=== PATIENT | female | born 1935 | race Caucasian/White ===

== ENCOUNTER 2024-01-27 13:02 | Inpatient (IN) | payer OTHER ==
[~2024-01-27] VITALS: Ht 175.3 cm; Wt 55.3 kg
--- NOTE | 2024-01-27 13:43 | ED.PDOC ---
General HPI Comments 88y F who presents to the ED for chief complaint of pelvic pain. Pt states she has been having L sided lower pelvic pain radiating down her LLE for the past 2 hours. Pt states the pain is sharp, rating the pain 10/10, with no associated exacerbating or relieving factors. Pt has associated nausea and vomiting but denies diarrhea, fever, cough, chills, dysuria, chest pain, or shortness of breath. Pt denies any recent sick contacts. Pt in the ED, noted to be in severe distress. Pt does otherwise has noted stable vitals in the ED. Pt otherwise denies any other symptoms at this time. Chief Complaint: Pelvic Pain Time Seen by MD: 13:40 Reviewed notes: Nurses Notes, Medications, Allergies Allergies: Coded Allergies: Iodine (Verified Allergy, Unknown, 01/27/24) Information Source: Patient Mode of Arrival: Wheelchair Brought in by: daughter Severity: Moderate Inability to void: None Timing: Hours Duration: Since onset Prehospital treatment: None Onset: Spontaneous Symptoms: None History of: None Location: Suprapubic Modifying factors: None associated signs and symptoms: Nausea, Vomiting, Back Pain Past Medical History PAST MEDICAL HISTORY: CVA, High Lipids, HTN, Thyroid Surgical History: Denies all surgeries SCRIPT READER History: No Pertinent SCRIPT READER History Family History Family History: Family hx of Cancer Social History Smoker: Non-Smoker Alcohol: Denies ETOH Use Drugs: Denies Drug Use Lives In: Home Constitutional: denies: chills, diaphoresis, fatigue, fever, malaise, sweats, weakness, others EENTM: denies: blurred vision, double vision, ear bleeding, ear discharge, ear drainage, ear pain, ear ringing, eye pain, eye redness, hearing loss, mouth pain, mouth swelling, nasal discharge, nose bleeding, nose congestion, nose p ain, photophobia, tearing, throat pain, throat swelling, voice changes, others Respiratory: denies: cough, hemoptysis, orthopnea, SOB at rest, shortness of breath, SOB with excertion, stridor, wheezing, others Cardiovascular: denies: chest pain, dizzy spells, diaphoresis, Dyspnea on exertion, edema, irregular heart beat, left arm pain, lightheadedness, palpitations, PND, syncope, others Gastrointestinal: reports: nausea, vomiting; denies: abdomen distended, abdominal pain, blood streaked bowels, constipated, diarrhea, dysphagia, difficulty swallowing, hematemesis, melena, poor appetite, poor fluid intake, rectal bleeding, rectal pain, others Genitourinary: reports: flank pain; denies: abnormal vagina bleeding, burning, dyspareunia, dysuria, frequency, hematuria, incontinence, pain, , vagina discharge, urgency, others Neurological: denies: dizziness, fainting, headache, left sided numbness, left sided weakness, numbness, paresthesia, pre-existing deficit, right sided numbness, right sided weakness, seizure, speech problems, tingling, tremors, weakness, others Musculoskeletal: reports: back pain; denies: gout, joint pain, joint swelling, muscle pain, muscle stiffness, neck pain, others Integumetry: denies: bruises, change in color, change in hair/nails, dryness, laceration, lesions, lumps, rash, wounds, others Allergic/Immunocompromised: denies: Difficulty Healing, Frequent Infections, Hives, Itching, others Hematologic/Lymphatic: denies: anemia, blood clots, easy bleeding, easy bruising, swollen glands, others Endocrine: denies: excessive hunger, excessive sweating, excessive thirst, excessive urination, flushing, intolerance to cold, intolerance to heat, unexplained weight gain, unexplained weight loss, others Psychiatric: denies: anxiety, bipolar disorder, depression, hopeless, panic disorder, schizophrenia, sleepless, suicidal, others All Other Systems: Reviewed and Negative Physical Exam General Appearance: Moderate Distress HEENT: Normal ENT Inspection, Pharynx Normal, TMs Normal Neck: Full Range of Motion, Non-Tender, Normal, Normal Inspection Respiratory: Chest Non-Tender, Lungs Clear, No Accessory Muscle Use, No Respiratory Distress, Normal Breath Sounds Cardiovascular: No Edema, No JVD, No Murmur, No Gallop, Normal Peripheral Pulses, Regular Rate/Rhythm Breast Exam: Deferred Gastrointestinal: LLQ, No Organomegaly, No Pulsatile Mass, Normal Bowel Sounds, Soft, Tenderness Genitalia: Deferred Pelvic: Deferred Rectal: Deferred Extremities: No calf tenderness, Normal capillary refill, Normal inspection, Normal range of motion, Non-tender, No pedal edema Musculoskeletal : Extremity Location: Shoulder Apperance: Limited ROM Neurologic: Alert, optical effects line up person II-XII nml as Tested, No Motor Deficits, Normal Affect, Normal Mood, No Sensory Deficits Cerebellar Function: Normal Reflexes: Normal Skin: Dry, Normal Color, Warm Lymphatic: No Adenopathy Was a procedure done? Was a procedure done?: No Differential Diagnosis Kidney stone (Female): Cholelithiasis, DJD, Musculoskeletal pain, Pyelonephritis, Strain, Urinary obstruction Urinary Problem (Female): UTI X-Ray, Labs, Meds, VS Vital Signs Date Time Temp Pulse Resp B/P (MAP) Pulse Ox O2 Delivery O2 Flow Rate FiO2 01/27/24 14:31 97.0 67 18 158/74 (102) 96 97.0 01/27/24 14:26 86 20 136/86 01/27/24 14:25 80 20 132/86 01/27/24 13:43 97.2 71 24 128/84 (99) 99 Lab Test 01/27/24 13:57 Range/Units White Blood Count 7.5 4.4-10.8 10^3/uL Red Blood Count 4.39 4.0-5.20 10^6/uL Hemoglobin 13.7 12.2-16.2 g/dL Hematocrit 41.3 36.0-46.0 % Mean Corpuscular Volume 94.2 80.0-100.0 fL Mean Corpuscular Hemoglobin 31.2 28.0-32.0 pg Mean Corpuscular Hemoglobin Concent 33.1 32.0-36.0 g/dL Red Cell Distribution Width 14.7 H 11.8-14.3 % Platelet Count 249 140-450 10^3/uL Mean Platelet Volume 9.3 6.9-10.8 fL Neutrophils (%) (Auto) 68.0 37.0-80.0 % Lymphocytes (%) (Auto) 23.2 10.0-50.0 % Monocytes (%) (Auto) 7.2 0.0-12.0 % Eosinophils (%) (Auto) 1.2 0.0-7.0 % Basophils (%) (Auto) 0.4 0.0-2.0 % Neutrophils # (Auto) 5.1 1.6-8.6 10 ^3/uL Lymphocytes # (Auto) 1.7 0.4-5.4 10 ^3/uL Monocytes # (Auto) 0.5 0-1.3 10 ^3/uL Eosinophils # (Auto) 0.1 0-0.8 10 ^3/uL Basophils # (Auto) 0 0-0.2 10 ^3/uL Nucleated Red Blood Cells 0.0 % Sodium Level Pending Potassium Level Pending Chloride Level Pending Carbon Dioxide Level Pending Anion Gap Pending Blood Urea Nitrogen Pending Creatinine Pending Glomerular Filtration Rate Calc Pending BUN/Creatinine Ratio Pending Serum Glucose Pending Calcium Level Pending Total Bilirubin Pending Aspartate Amino Transferase (AST) Pending Alanine Aminotransferase (ALT) Pending Alkaline Phosphatase Pending Total Protein Pending Albumin Pending Lipase Pending Current Medications Medications (Trade) Dose Ordered Sig/Esequiel Route Start Time Stop Time Status Last Admin Ondansetron HCl (Zofran) 4 mg ONCE ONCE IV 01/27/24 13:45 01/27/24 13:46 DC 01/27/24 14:26 Morphine Sulfate 4 mg ONCE ONCE IV 01/27/24 13:45 01/27/24 13:46 DC 01/27/24 14:25 Sodium Chloride 500 ml @ 500 mls/hr Q1H ONCE IVB 01/27/24 13:45 01/27/24 14:44 DC 01/27/24 14:20 PROCEDURE(s): ABPL - CT AB PEL WO CON-NO ORAL OR IV IMPRESSION: 1. Moderate left hydroureteronephrosis secondary to a proximal left ureteral calculus measuring 4 mm. 2. Right ovarian/adnexal cystic lesion with peripheral nodularity measuring 8.9 x 8.1 cm. Recommend ultrasound pelvis and bow maker machine tender consultation to evaluate for ovarian complex cystic lesion/neoplasm. 3. Right renal indeterminate lesion involving the lower pole measuring 4.4 cm. Recommend renal ultrasound to characterize if this is solid or cystic. 4. Nonobstructing right renal calculus. 5. Other findings as described. IV Hep-Lock was established The patient was given morphine 4 mg IV push The patient was given Zofran 4 mg IV push The patient was given normal saline at 500 cc bolus. The patient's CBC is within normal limits At this time, the patient is being admitted The patient was having persistent pain so the patient was given Toradol 15 mg IV push Images Reviewed?: Images reviewed and evaluated by me Time of 1ST Reevaluation: 14:55 Reevaluation 1ST: Unchanged Patient Education/Counseling: Diagnosis, Treatment, Prognosis Family Education/Counseling: No Family Present Departure 1 Departure Time of Disposition: 14:52 Impression: Primary Impression: Intractable abdominal pain Additional Impressions: Hydronephrosis Qualified Codes: N13.2 - Hydronephrosis with renal and ureteral calculous obstruction Renal calculus Disposition: ADMITTED INPATIENT Admit to: Med Surg Condition: Fair Critical Care Note Critical Care Time?: No Stability Stability form required: Yes Unstable for transfer: ED Physician Assesment (Clinical assesment) Heart Score Heart Score: Heart Score Response (Comments) Value History N/A 0 EKG N/A 0 Age N/A 0 Risk Factors N/A 0 Troponin N/A 0 Total 0 I personally scribed for SARAH HATHAWAY MD ([email or web address]) on 01/27/24 at 13:43. Electronically submitted by Glory Black ([email or web address]). I personally scribed for SARAH HATHAWAY MD ([email or web address]) on 01/27/24 at 14:27. Electronically submitted by Glory BAH). SARAH HATHAWAY MD Jan 27, 2024 13:43
[2024-01-27] MEDS: SODIUM CHLORIDE 0.9% 500 ML IVB ONE (14:20)
--- NOTE | 2024-01-27 14:21 | DVH ---
Indication: llq pain Technique: CT axial images of the abdomen and pelvis are obtained without contrast. Coronal and sagit singh reformats were obtained. Radiation Dose Information: CTDI volume is 6.17 mGy. Dose-length product is 326.71 mGy*cm Comparison: None FINDINGS: There is limited interpretation of the abdomen and pelvis without administration of intravenous contr ast. Lung bases demonstrate no pleural effusion. Adrenal glands, spleen and pancreas unremarkable in shape. Liver is unremarkable in shape. No CT ev idence for cholelithiasis. The right kidney demonstrates no hydronephrosis. Peripelvic cysts. 2 mm nonobstructing calculus. In determinate right renal lower pole lesion measuring 4.4 cm. Left kidney demonstrates moderate left hydroureteronephrosis secondary to proximal left ureteral calc ulus measuring 4 mm. There are left renal peripelvic cysts. The stomach demonstrates small hiatal hernia. Small bowel loops are normal in caliber. Colonic diverticular disease. Moderate volume stool within the colon. Normal appendix. Abdominal aortic atherosclerotic disease. Bladder is partially distended. There is a complex appeari ng right ovarian/ adnexal lesion with peripheral nodularity measuring 8.9 x 8.1 by 7.5 cm. Bladder d istended. No free pelvic fluid. No inguinal lymphadenopathy. Moderate bilateral sacroiliac degenerative joint disease. Moderate thoracolumbar degenerative disc di sease. IMPRESSION: 1. Moderate left hydroureteronephrosis secondary to a proximal left ureteral calculus measuring 4 mm. 2. Right ovarian/adnexal cystic lesion with peripheral nodularity measuring 8.9 x 8.1 cm. Recommend ultrasound pelvis and anatomic pathologist consultation to evaluate for ovarian complex cystic lesion/neoplasm. 3. Right renal indeterminate lesion involving the lower pole measuring 4.4 cm. Recommend renal ultra sound to characterize if this is solid or cystic. 4. Nonobstructing right renal calculus. 5. Other findings as described.
[2024-01-27] MEDS: MORPHINE SULFATE 4 MG/ML SYR/VIAL IV ONE (14:25)
[2024-01-27] MEDS: ONDANSETRON HCL 4 MG/2 ML VIAL IV ONE (14:26)
[2024-01-27] MEDS: MORPHINE SULFATE 4 MG/ML SYR/VIAL ONE (14:26)
[2024-01-27] MEDS: ONDANSETRON HCL 4 MG/2 ML VIAL ONE (14:27)
[2024-01-27 14:28] LABS: Basophils # (auto) 0 10 ^3/uL (0-0.2); Basophils % (auto) 0.4 % (0.0-2.0); Eosinophils # (auto) 0.1 10 ^3/uL (0-0.8); Eosinophils % (auto) 1.2 % (0.0-7.0); Hematocrit 41.3 % (36.0-46.0); Hemoglobin 13.7 g/dL (12.2-16.2); Lymphocytes # (auto) 1.7 10 ^3/uL (0.4-5.4); Lymphocytes % (auto) 23.2 % (10.0-50.0); Mean Corpuscular Hemoglobin 31.2 pg (28.0-32.0); Mean Corpuscular Hgb Conc. 33.1 g/dL (32.0-36.0); Mean Corpuscular Volume 94.2 fL (80.0-100.0); Monocytes # (auto) 0.5 10 ^3/uL (0-1.3); Monocytes % (auto) 7.2 % (0.0-12.0); Neutrophils # (auto) 5.1 10 ^3/uL (1.6-8.6); Platelet Count (auto) 249 10^3/uL (140-450); Red Blood Cells 4.39 10^6/uL (4.0-5.20); Red Cell Distribution Width 14.7 % (11.8-14.3); White Blood Cell 7.5 10^3/uL (4.4-10.8)
[2024-01-27 14:48] LABS: Alanine Aminotransferase 12 U/L (7-40); Albumin 4.6 g/dL (3.2-4.8); Alkaline Phosphatase 45 U/L (46-116); Anion Gap 12 (5-15); Aspartate Aminotransferase 16 U/L (13-40); BUN/Creatinine Ratio 17.6 (10.0-20.0); Blood Urea Nitrogen 18 mg/dL (9-23); Calcium 10.3 mg/dL (8.7-10.4); Carbon Dioxide 21 mmol/L (20-31); Chloride 108 mmol/L (98-107); Glucose 143 mg/dL (74-106); Potassium 4.1 mmol/L (3.5-5.1); Sodium 141 mmol/L (136-145)
[2024-01-27 14:49] LABS: Bilirubin, Total 0.5 mg/dL (0.2-1.0); Total Protein 7.1 g/dL (5.7-8.2)
[2024-01-27 15:17] LABS: Lipase 65 U/L (12-53)
[2024-01-27 16:01] LABS: Urine Bacteria FEW /hpf (None Seen); Urine Blood 3+ /uL (Negative); Urine Budding Yeast OCCASIONAL /hpf (None Seen); Urine Clarity Turbid (Clear); Urine Color Light-Yellow (Yellow); Urine Mucus FEW (None Seen); Urine Protein, UAD Negative (Negative); Urine Specific Gravity 1.015 (1.001-1.035); Urine Urobilinogen Normal (Negative); Urine WBC 2 /hpf (0 - 5)
[2024-01-27 17:00] VITALS: PULSE 72; RESP 19; O2SAT 92
[2024-01-27] MEDS ORDERED: MAALOX PLUS or MAALOX 30 ML PO PRN (19:00)
[2024-01-27] MEDS ORDERED: DEXTROSE (50%) 50ML SYRG IV PRN (19:00)
[2024-01-27] MEDS: cefTRIAXone 1GM/50ML D5W 50 ML IV SCH (19:00)
[2024-01-27] MEDS: SODIUM CHLORIDE 0.9% 1,000 ML IV SCH (19:00)
--- NOTE | 2024-01-27 19:20 | DVHHP2 ---
History of Present Illness Reason for Visit: flank pain History of Present Illness 88 yo patient with PMH UTIs, CVA, HTN, Thyroid disorder comes with complaints flank pain patient on ed evaluation was evaluated with a ct scan shown to have stones with hydronephrosis and recommend for acute continued management for pain ASPHALT MIXER: CVA Renal/: UTI Endocrine: Diabetes Review of Systems Constitutional: Yes: Weakness; No: Fever, Chills, Sweats, Malaise, Other Eyes: No: Pain, Vision change, Conjunctivae inflammation, Eyelid inflammation, Other, Redness ENT: No: Ear pain, Ear discharge, Nose pain, Nose discharge, Nose congestion, Mouth pain, Mouth swelling, Throat pain, Throat swelling, Other Respiratory: No: Cough, Dry, Shortness of breath, SOB with excertion, Wheezing, Hemoptysis, Pleuritic Pain, Sputum, Wheezing, Other Cardiovascular: No: Chest Pain, Palpitations, Orthopnea, Paroxysmal Noc. Dyspnea, Edema, Lt Headedness, Other Gastrointestinal: No: Nausea, Vomiting, Abdominal Pain, Diarrhea, Constipation, Melena, Hematochezia, Other Genitourinary: Dysuria, Frequency; No Incontinence, No Hematuria, No Retention, No Other Musculoskeletal: No: other, neck pain, shoulder pain, arm pain, back pain, hand pain, leg pain, foot pain Skin: No: Rash, Lesions, Jaundice, Bruising, Other Neurological: No: Weakness, Numbness, Incoordination, Change in speech, Confusion, Seizures, Other Allergies: Coded Allergies: Iodine (Verified Allergy, Unknown, 01/27/24) Exam Vital Signs Vital Signs Date Time Temp Pulse Resp B/P (MAP) Pulse Ox O2 Delivery O2 Flow Rate FiO2 01/27/24 14:55 75 15 128/80 01/27/24 14:31 97.0 96 97.0 General Appearance: Alert, Oriented X3 HEENT: Atraumatic, PERRLA Respiratory: Clear to auscultation, Normal air movement Cardiovascular: Normal S1 Abdominal: Normal bowel sounds Extremities: No clubbing, No cyanosis Skin: No rashes, No breakdown Neuro: Normal speech Psych/Mental Status: Mood NL Labs/Xrays Labs Test 01/27/24 15:40 01/27/24 13:57 Range/Units Urine Color Light-yellow Yellow Urine Clarity Turbid H Clear Urine pH 7.0 5.0-9.0 Urine Specific Commerce 1.015 1.001-1.035 Urine Protein Negative Negative Urine Ketones Negative Negative Urine Blood 3+ H Negative /uL Urine Nitrite Negative Negative Urine Bilirubin Negative Negative Urine Urobilinogen Normal Negative mg/dL Urine Leukocyte Esterase Negative Negative /uL Urine RBC 549 0 - 4 /hpf Urine WBC 2 0 - 5 /hpf Urine Squamous Epithelial Cells Few <5 /hpf Urine Bacteria Few H None Seen /hpf Urine Mucus Few None Seen Urine Yeast (Budding) Occasional None Seen /hpf Urine Glucose 1+ H Normal mg/dL White Blood Count 7.5 4.4-10.8 10^3/uL Red Blood Count 4.39 4.0-5.20 10^6/uL Hemoglobin 13.7 12.2-16.2 g/dL Hematocrit 41.3 36.0-46.0 % Mean Corpuscular Volume 94.2 80.0-100.0 fL Mean Corpuscular Hemoglobin 31.2 28.0-32.0 pg Mean Corpuscular Hemoglobin Concent 33.1 32.0-36.0 g/dL Red Cell Distribution Width 14.7 H 11.8-14.3 % Platelet Count 249 140-450 10^3/uL Mean Platelet Volume 9.3 6.9-10.8 fL Neutrophils (%) (Auto) 68.0 37.0-80.0 % Lymphocytes (%) (Auto) 23.2 10.0-50.0 % Monocytes (%) (Auto) 7.2 0.0-12.0 % Eosinophils (%) (Auto) 1.2 0.0-7.0 % Basophils (%) (Auto) 0.4 0.0-2.0 % Neutrophils # (Auto) 5.1 1.6-8.6 10 ^3/uL Lymphocytes # (Auto) 1.7 0.4-5.4 10 ^3/uL Monocytes # (Auto) 0.5 0-1.3 10 ^3/uL Eosinophils # (Auto) 0.1 0-0.8 10 ^3/uL Basophils # (Auto) 0 0-0.2 10 ^3/uL Nucleated Red Blood Cells 0.0 % Sodium Level 141 136-145 mmol/L Potassium Level 4.1 3.5-5.1 mmol/L Chloride Level 108 H 98-107 mmol/L Carbon Dioxide Level 21 20-31 mmol/L Anion Gap 12 5-15 Blood Urea Nitrogen 18 9-23 mg/dL Creatinine 1.02 0.550-1.02 mg/dL Glomerular Filtration Rate Calc 53 >90 mL/min BUN/Creatinine Ratio 17.6 10.0-20.0 Serum Glucose 143 H 74-106 mg/dL Calcium Level 10.3 8.7-10.4 mg/dL Total Bilirubin 0.5 0.2-1.0 mg/dL Aspartate Amino Transferase (AST) 16 13-40 U/L Alanine Aminotransferase (ALT) 12 7-40 U/L Alkaline Phosphatase 45 L 46-116 U/L Total Protein 7.1 5.7-8.2 g/dL Albumin 4.6 3.2-4.8 g/dL Lipase 65 H 12-53 U/L Assessment/Plan Assessment/Plan Admit to Med/Surg Flank Pain Ureter stone 4mm Hydronephrosis UTI IV hydration PRN pain managment CT shows 4 mm stone partial obstruction olmos ordered urology evaluation for lithotrispy iv abx History HTN /HLD c/w home meds monitor BP statins unnecessary at this age Plan discussed with: Patient My Orders Orders - BALJINDER YANES MD Procedure Category Date Status Time Ceftriaxone Ivpb PHA 01/27/24 Transmitted Rocephin 19:00 NS PHA 01/27/24 Transmitted 19:00 * Gu Consult CONS 01/27/24 Transmitted 18:49 Glucose Blood [facility] 01/27/24 Transmitted (Accu-Chek Comfort 20:00 Moderate Insulin Ss PHA 01/27/24 Transmitted 20:00 Dextrose 50% Syringe [facility] 01/27/24 Transmitted 19:00 Admit ADMIT 01/27/24 Transmitted 18:49 Code Status CODE 01/27/24 Transmitted 18:49 Vital Signs [facility] 01/27/24 Transmitted 18:49 Review Orders With [facility] 01/27/24 Transmitted Adm. 18:49 Consistent DIET 01/28/24 Transmitted Carb(Ccho)Diabetes Breakfast Alum & Mag PHA 01/27/24 Transmitted Hydrox-Simethicone 19:00 Docusate Sodium [facility] 01/27/24 Transmitted Capsule (Colace 19:00 Acetaminophen Tablet [facility] 01/27/24 Transmitted (Tylenol Tablet) 19:00 Notify Of Changes [facility] 01/27/24 Transmitted From Base 18:49 Advance Directive [facility] 01/27/24 Transmitted 18:49 Basic Metabolic Panel LAB 01/28/24 Verified 04:00 Complete Blood Count LAB 01/28/24 Verified 04:00 Patient Condition ORDERS 01/27/24 Transmitted 18:49 Allergies JORDI 01/27/24 Transmitted 18:49 Hydrocodone-Acet PHA 01/27/24 Transmitted 5/325mg Tab ([place] 19:00 Ondansetron Hcl PHA 01/27/24 Transmitted (Zofran) 19:00 Morphine 2mg Iv Q4hprn PHA 01/27/24 Transmitted 19:00 Notify Md Of Changes JORDI 01/27/24 Transmitted From Base 18:49 Oxygen By Nasal RT 01/27/24 Transmitted Cannula 18:49 Problem List: (1) Hydronephrosis (2) Renal calculus (3) Intractable abdominal pain Date of Service: Jan 27, 2024 Billing Provider: BALJINDER YANES MD Common Visit Codes: [id number] INP/OBS CARE (HIGH) BALJINDER YANES MD Jan 27, 2024 19:20
[2024-01-27 19:30] VITALS: PULSE 72; RESP 19; O2SAT 95
[2024-01-27] MEDS: ACCU-CHEK COMFORT CURVE STRIP VI SCH (19:41)
[2024-01-27] MEDS: InsuLIN REG 1unit/0.01ml Soln (100units/ml) SC SCH (19:41)
[2024-01-27] MEDS: ONDANSETRON HCL 4 MG/2 ML VIAL IV PRN (19:44)
[2024-01-27] MEDS: MORPHINE SULFATE INJ 2 MG/ml SYRG IV PRN (19:45)
[2024-01-28] MEDS: KETOROLAC TROMETH 30 MG/ML 1ML VIAL IV ONE (02:30)
[2024-01-28] MEDS: HYDROcodone-ACET 5/325MG TAB PO PRN (03:11)
[2024-01-28 04:05] VITALS: RESP 21; O2SAT 90
[2024-01-28 06:06] LABS: Basophils # (auto) 0 10 ^3/uL (0-0.2); Basophils % (auto) 0.2 % (0.0-2.0); Eosinophils # (auto) 0 10 ^3/uL (0-0.8); Eosinophils % (auto) 0.4 % (0.0-7.0); Hematocrit 34.4 % (36.0-46.0); Hemoglobin 11.7 g/dL (12.2-16.2); Lymphocytes # (auto) 1.8 10 ^3/uL (0.4-5.4); Lymphocytes % (auto) 22.1 % (10.0-50.0); Mean Corpuscular Hemoglobin 31.5 pg (28.0-32.0); Mean Corpuscular Volume 92.9 fL (80.0-100.0); Monocytes % (auto) 11.5 % (0.0-12.0); Neutrophils # (auto) 5.5 10 ^3/uL (1.6-8.6); Neutrophils % (auto) 65.8 % (37.0-80.0); Nucleated Red Blood Cells % 0.1 %; Platelet Count (auto) 200 10^3/uL (140-450); Red Cell Distribution Width 14.5 % (11.8-14.3); White Blood Cell 8.3 10^3/uL (4.4-10.8)
[2024-01-28 06:16] LABS: Anion Gap 10 (5-15); Carbon Dioxide 22 mmol/L (20-31); Chloride 110 mmol/L (98-107); Potassium 3.5 mmol/L (3.5-5.1); Sodium 142 mmol/L (136-145)
[2024-01-28 06:17] LABS: Calcium 8.8 mg/dL (8.7-10.4)
[2024-01-28 06:21] LABS: Glucose 98 mg/dL (74-106)
[2024-01-28 06:22] LABS: BUN/Creatinine Ratio 16.3 (10.0-20.0); Blood Urea Nitrogen 15 mg/dL (9-23)
[2024-01-28 09:55] VITALS: PULSE 62; RESP 22; O2SAT 94
[2024-01-28 16:13] VITALS: PULSE 87; RESP 18; O2SAT 96
[2024-01-28 16:30] VITALS: BP 132/60; PULSE 61; RESP 18; TEMP 98.5; O2SAT 96
--- NOTE | 2024-01-28 16:32 | DVHINCON2 ---
Date of service: Jan 28, 2024 Referring Physician Hospitalist Reason for Consultation hydronephrosis History of Present Illness History Source: RN Notes, MD Notes, Old Records Exam Limitations: No limitations HPI 88y F who presents to the ED for chief complaint of pelvic pain. Pt states she has been having L sided lower pelvic pain radiating down her LLE for the past 2 hours. Pt states the pain is sharp, rating the pain 10/10, with no associated exacerbating or relieving factors. Pt has associated nausea and vomiting but denies diarrhea, fever, cough, chills, dysuria, chest pain, or shortness of breath. Pt denies any recent sick contacts. Pt in the ED, noted to be in severe distress. Pt does otherwise has noted stable vitals in the ED. Pt otherwise denies any other symptoms at this time. CT shows 1. Moderate left hydroureteronephrosis secondary to a proximal left ureteral calculus measuring 4 mm. 2. Right ovarian/adnexal cystic lesion with peripheral nodularity measuring 8.9 x 8.1 cm. Recommend ultrasound pelvis and community engagement manager consultation to evaluate for ovarian complex cystic lesion/neoplasm. 3. Right renal indeterminate lesion involving the lower pole measuring 4.4 cm. Recommend renal ultrasound to characterize if this is solid or cystic. Home Meds Reported Medications Fenofibrate (FENOFIBRATE) 145 Mg Tab, 1 TAB PO DAILY 01/28/24 Ibuprofen Micronized (Ibuprofen) 600 Mg Tab, 1 TAB PO TID 01/28/24 Famotidine (Famotidine) 20 Mg Tab, 1 TAB PO BID 01/28/24 Fluticasone Propionate (Nasal) (Fluticasone Propionate) 50 Mcg/Act Spr, SPRAY MARINA 01/28/24 Atorvastatin Calcium (ATORVASTATIN CALCIUM) 40 Mg Tab, 1 TAB PO DAILY 01/28/24 Losartan Potassium (Losartan Potassium) 25 Mg Tab, 1 TAB PO BID 01/28/24 Levothyroxine Sodium (Levothyroxine Sodium) 75 Mcg Tab, 1 TAB PO DAILY 01/28/24 Propranolol HCl (Propranolol Hydrochloride) 20 Mg Tab, 1 TAB PO BID 01/28/24 Citalopram Hydrobromide (Citalopram Hydrobromide) 40 Mg Tab, 1 TAB PO DAILY 01/28/24 Alendronate Sodium (Alendronate Sodium) 70 Mg Tab, 1 TAB PO QWEEKLY 01/28/24 Past Medical History Central Nervous System: CVA Review of Systems Gastrointestinal: Nausea, Vomiting, Abdominal Pain Genitourinary: Pain H&P Exam Vital Signs Vital Signs Date Time Temp Pulse Resp B/P (MAP) Pulse Ox O2 Delivery O2 Flow Rate FiO2 01/28/24 14:00 62 18 128/57 (80) 97 01/28/24 12:00 98.0 98.0 01/28/24 09:55 Nasal Cannula* 3 32 Labs/Xrays [place] [address] Ph: [phone] DIAGNOSTIC IMAGING Diagnostic Imaging Report : [id number] Signed PATIENT: TARA JACKSON ACCT: [id number] UNIT: [id number] : 1935 LOC: ER ROOM / BED: / AGE / SEX: 88 / F ADM STATUS: REG ER SERVICE 4200 ORDERING PHYSICIAN: SARAH HATHAWAY MD PROCEDURE(s): ABPL - CT AB PEL WO CON-NO ORAL OR IV REASON: llq pain ORDER NUMBER(s): [id number], ACCESSION NUMBER(s): [id number] Indication: llq pain Technique: CT axial images of the abdomen and pelvis are obtained without contrast. Coronal and sagittal reformats were obtained. Radiation Dose Information: CTDI volume is 6.17 mGy. Dose-length product is 326.71 mGy*cm Comparison: None FINDINGS: There is limited interpretation of the abdomen and pelvis without administration of intravenous contrast. Lung bases demonstrate no pleural effusion. Adrenal glands, spleen and pancreas unremarkable in shape. Liver is unremarkable in shape. No CT evidence for cholelithiasis. The right kidney demonstrates no hydronephrosis. Peripelvic cysts. 2 mm nonobstructing calculus. Indeterminate right renal lower pole lesion measuring 4.4 cm. Left kidney demonstrates moderate left hydroureteronephrosis secondary to proximal left ureteral calculus measuring 4 mm. There are left renal peripelvic cysts. The stomach demonstrates small hiatal hernia. Small bowel loops are normal in caliber. Colonic diverticular disease. Moderate volume stool within the colon. Normal appendix. Abdominal aortic atherosclerotic disease. Bladder is partially distended. There is a complex appearing right ovarian/ adnexal lesion with peripheral nodularity measuring 8.9 x 8.1 by 7.5 cm. Bladder distended. No free pelvic fluid. No inguinal lymphadenopathy. 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 IMPRESSION: 1. Moderate left hydroureteronephrosis secondary to a proximal left ureteral calculus measuring 4 mm. 2. Right ovarian/adnexal cystic lesion with peripheral nodularity measuring 8.9 x 8.1 cm. Recommend ultrasound pelvis and community engagement manager consultation to evaluate for ovarian complex cystic lesion/neoplasm. 3. Right renal indeterminate lesion involving the lower pole measuring 4.4 cm. Recommend renal ultrasound to characterize if this is solid or cystic. 4. Nonobstructing right renal calculus. 5. Other findings as described. ATED BY: NANO MEZA MD DICTATED DATE/TIME: 01/27/24 1419 SIGNED BY: NANO MEZA MD SIGNED DATE/TIME: 01/27/24 141 CC: Labs Test 01/28/24 11:29 01/28/24 04:47 01/27/24 15:40 01/27/24 13:57 Range/Units POC Glucose 107 H 70-106 mg/dl White Blood Count 8.3 4.4-10.8 10^3/uL Red Blood Count 3.70 L 4.0-5.20 10^6/uL Hemoglobin 11.7 L 12.2-16.2 g/dL Hematocrit 34.4 #L 36.0-46.0 % Mean Corpuscular Volume 92.9 80.0-100.0 fL Mean Corpuscular Hemoglobin 31.5 28.0-32.0 pg Mean Corpuscular Hemoglobin Concent 34.0 32.0-36.0 g/dL Red Cell Distribution Width 14.5 H 11.8-14.3 % Platelet Count 200 140-450 10^3/uL Mean Platelet Volume 9.6 6.9-10.8 fL Neutrophils (%) (Auto) 65.8 37.0-80.0 % Lymphocytes (%) (Auto) 22.1 10.0-50.0 % Monocytes (%) (Auto) 11.5 0.0-12.0 % Eosinophils (%) (Auto) 0.4 0.0-7.0 % Basophils (%) (Auto) 0.2 0.0-2.0 % Neutrophils # (Auto) 5.5 1.6-8.6 10 ^3/uL Lymphocytes # (Auto) 1.8 0.4-5.4 10 ^3/uL Monocytes # (Auto) 1.0 0-1.3 10 ^3/uL Eosinophils # (Auto) 0 0-0.8 10 ^3/uL Basophils # (Auto) 0 0-0.2 10 ^3/uL Nucleated Red Blood Cells 0.1 % Sodium Level 142 136-145 mmol/L Potassium Level 3.5 3.5-5.1 mmol/L Chloride Level 110 H 98-107 mmol/L Carbon Dioxide Level 22 20-31 mmol/L Anion Gap 10 5-15 Blood Urea Nitrogen 15 9-23 mg/dL Creatinine 0.92 0.550-1.02 mg/dL Glomerular Filtration Rate Calc 60 >90 mL/min BUN/Creatinine Ratio 16.3 10.0-20.0 Serum Glucose 98 74-106 mg/dL Calcium Level 8.8 8.7-10.4 mg/dL Urine Color Light-yellow Yellow Urine Clarity Turbid H Clear Urine pH 7.0 5.0-9.0 Urine Specific [place] 1.015 1.001-1.035 Urine Protein Negative Negative Urine Ketones Negative Negative Urine Blood 3+ H Negative /uL Urine Nitrite Negative Negative Urine Bilirubin Negative Negative Urine Urobilinogen Normal Negative mg/dL Urine Leukocyte Esterase Negative Negative /uL Urine RBC 549 0 - 4 /hpf Urine WBC 2 0 - 5 /hpf Urine Squamous Epithelial Cells Few <5 /hpf Urine Bacteria Few H None Seen /hpf Urine Mucus Few None Seen Urine Yeast (Budding) Occasional None Seen /hpf Urine Glucose 1+ H Normal mg/dL Total Bilirubin 0.5 0.2-1.0 mg/dL Aspartate Amino Transferase (AST) 16 13-40 U/L Alanine Aminotransferase (ALT) 12 7-40 U/L Alkaline Phosphatase 45 L 46-116 U/L Total Protein 7.1 5.7-8.2 g/dL Albumin 4.6 3.2-4.8 g/dL Lipase 65 H 12-53 U/L Assessment/Plan Problem List: (1) Hydronephrosis (2) Renal calculus (3) Intractable abdominal pain Plan expulsive measures pain control prn hold anticoagulants consult gynecology npo after midnight US tomorrow to reassess hydro, may need PCN placement Plan discussed with: Patient, Other ROBIN [employer] GU[employer] Jan 28, 2024 16:32
[2024-01-28] MEDS ORDERED: FENO145T27 PO (16:52)
[2024-01-28] MEDS ORDERED: ATOR40TA52 PO (16:52)
[2024-01-28] MEDS ORDERED: PROP1TAB53 PO (16:52)
[2024-01-28] MEDS ORDERED: ALEN70TA74 PO (16:52)
[2024-01-28] MEDS ORDERED: FAMO-12 PO (16:52)
[2024-01-28] MEDS ORDERED: FLUT50SP NAS (16:52)
[2024-01-28] MEDS ORDERED: CITA-73 PO (16:52)
[2024-01-28] MEDS ORDERED: IBUP1TAB5 PO (16:52)
[2024-01-28] MEDS ORDERED: LOS25T PO (16:52)
[2024-01-28] MEDS ORDERED: LEVO75TA6 PO (16:52)
--- NOTE | 2024-01-28 17:07 | DVHPN2 ---
Subjective 88-year-old female came with a chief complaint of left flank pain x 2 days Changes from previous H/P or p: Changes Eyes: No Pain, No Vision change, No Conjunctivae inflammation, No Eyelid inflammation, No Other, No Redness ENT: No Ear pain, No Ear discharge, No Nose pain, No Nose discharge, No Nose congestion, No Mouth pain, No Mouth swelling, No Throat pain, No Throat swelling, No Other Cardiovascular: No Chest Pain, No Palpitations, No Orthopnea, No Paroxysmal Noc. Dyspnea, No Edema, No Lt Headedness, No Other Respiratory: No Cough, No Dry, No Shortness of breath, No SOB with excertion, No Wheezing, No Hemoptysis, No Pleuritic Pain, No Sputum, No Other Gastrointestinal: No Nausea, No Vomiting, No Abdominal Pain, No Diarrhea, No Constipation, No Melena, No Hematochezia, No Other Genitourinary: Dysuria, Frequency; No Incontinence, No Hematuria, No Retention, No Other Musculoskeletal: No other, No neck pain, No shoulder pain, No arm pain, No back pain, No hand pain, No leg pain, No foot pain Skin: No Rash, No Lesions, No Jaundice, No Bruising, No Other Objective Vitals Vital Signs Date Time Temp Pulse Resp B/P (MAP) Pulse Ox O2 Delivery O2 Flow Rate FiO2 01/28/24 14:00 62 18 128/57 (80) 97 01/28/24 12:00 98.0 98.0 01/28/24 09:55 Nasal Cannula* 3 32 General Appearance: Alert, Oriented X3 Lungs: Clear to auscultation, Normal air movement Cardiovascular: Regular rate, Normal S1, Normal S2 Abdomen: Normal bowel sounds, Soft Extremities: No edema Medications Current Medications Medications Dose Ordered Sig/Esequiel Route Start Time Stop Time Status Last Admin Dose Admin Ceftriaxone Sodium 50 ml @ 100 mls/hr DAILY IV 01/27/24 19:00 01/28/24 08:11 100 MLS/HR Sodium Chloride 1,000 ml @ 75 mls/hr [id number] IV 01/27/24 19:00 01/28/24 08:11 75 MLS/HR Diagnostic Test (Pha) 1 strip IQ4HR 01/27/24 20:00 01/28/24 12:53 1 STRIP Insulin Human Regular IQ4HR SC 01/27/24 20:00 01/27/24 19:41 2 UNITS Dextrose 50 ml UD PRN IV 01/27/24 19:00 Al Hydrox/Mg Hydrox/Simethicone 30 ml Q6HP PRN PO 01/27/24 19:00 Docusate Sodium 100 mg BIDPRN PRN PO 01/27/24 19:00 Acetaminophen 650 mg Q6HP PRN PO 01/27/24 19:00 Acetaminophen/ Hydrocodone Bitart 1 tab Q4HP PRN PO 01/27/24 19:00 01/28/24 03:11 1 TAB Ondansetron HCl 4 mg Q4HP PRN IV 01/27/24 19:00 01/28/24 08:11 4 MG Morphine Sulfate 2 mg Q4HPRN PRN IV 01/27/24 19:00 01/28/24 08:12 2 MG Laboratory Results Laboratory Tests 01/28/24 04:47 Chemistry Test 01/28/24 04:47 Calcium Level 8.8 mg/dL (8.7-10.4) Urinalysis Test 01/27/24 15:40 Urine Color Light-yellow (Yellow) Urine Clarity Turbid (Clear) H Urine pH 7.0 (5.0-9.0) Urine Specific [place] 1.015 (1.001-1.035) Urine Protein Negative (Negative) Urine Ketones Negative (Negative) Urine Blood 3+ /uL (Negative) H Urine Nitrite Negative (Negative) Urine Bilirubin Negative (Negative) Urine Urobilinogen Normal mg/dL (Negative) Urine Leukocyte Esterase Negative /uL (Negative) Urine RBC 549 /hpf (0 - 4) Urine WBC 2 /hpf (0 - 5) Urine Squamous Epithelial Cells Few /hpf (<5) Urine Bacteria Few /hpf (None Seen) H Urine Mucus Few (None Seen) Urine Yeast (Budding) Occasional /hpf (None Urine Glucose 1+ mg/dL (Normal) H Assessment/Plan Assessment/Plan Left distal ureteral stone 4 mm with hydronephrosis Right kidney mass 4.4 cm Right pelvic mass 8 x 9 cm Attention Old CVA Hypothyroidism Dyslipidemia new line Plan Urology consult Director Pharmacovigilance consult IV fluids Renal Ultrasound Pain management Discussed with the daughter at the bedside Full code Plan discussed with: Patient, Daughter Date of Service: Jan 28, 2024 Billing Provider: TRACE LOPEZ MD Common Visit Codes: NOT BILLABLE TRACE LOPEZ MD Jan 28, 2024 17:07
--- NOTE | 2024-01-28 18:16 | DVH ---
INDICATION: hydronephrosis, renal mass TECHNIQUE: Multiple real-time sonographic images of the kidneys and bladder were obtained. COMPARISON: None FINDINGS: RIGHT kidney measures 9.2 cm in length. Multiple right-sided parapelvic cysts with a 4.4 cm cortical cyst. No hydronephrosis. nonobstructing right renal lower pole calculus. LEFT kidney measures 11.1 cm in length. Mild left hydronephrosis. Normal left renal cortical thicknes s and echogenicity. No renal calculi. Urinary bladder is unremarkable. Urinary bladder prevoid volume of 715 cc with postvoid residual vol ume of 141 cc. Bilateral ureteral jets are visualized. Incidental finding of 6.9 x 6.1 x 8.7 cm right adnexal complex cyst IMPRESSION: Mild left hydronephrosis. Right renal parapelvic and cortical cysts with nonobstructing right renal lower pole calculus. 4.4 cm right renal lower pole exophytic indeterminate lesion on CT appears cystic on ultrasound. Urinary bladder is unremarkable with prevoid volume of 715 cc and postvoid residual volume of 141 cc. Correlate for possible urinary retention. Redemonstration of 6.9 x 6.1 x 8.7 cm right adnexal complex cyst.
--- NOTE | 2024-01-28 19:03 | DVHINCON2 ---
Date of service: Jan 28, 2024 Referring Physician Hospitalist Reason for Consultation Pelvic abdominal mass 8.9 x 8.1 cm dominant pelvic pain History of Present Illness History Source: Patient, MD Notes Home Meds Reported Medications Fenofibrate (FENOFIBRATE) 145 Mg Tab, 1 TAB PO DAILY 01/28/24 Ibuprofen Micronized (Ibuprofen) 600 Mg Tab, 1 TAB PO TID 01/28/24 Famotidine (Famotidine) 20 Mg Tab, 1 TAB PO BID 01/28/24 Fluticasone Propionate (Nasal) (Fluticasone Propionate) 50 Mcg/Act Spr, SPRAY MARINA 01/28/24 Atorvastatin Calcium (ATORVASTATIN CALCIUM) 40 Mg Tab, 1 TAB PO DAILY 01/28/24 Losartan Potassium (Losartan Potassium) 25 Mg Tab, 1 TAB PO BID 01/28/24 Levothyroxine Sodium (Levothyroxine Sodium) 75 Mcg Tab, 1 TAB PO DAILY 01/28/24 Propranolol HCl (Propranolol Hydrochloride) 20 Mg Tab, 1 TAB PO BID 01/28/24 Citalopram Hydrobromide (Citalopram Hydrobromide) 40 Mg Tab, 1 TAB PO DAILY 01/28/24 Alendronate Sodium (Alendronate Sodium) 70 Mg Tab, 1 TAB PO QWEEKLY 01/28/24 Chief Complaint of Abdominal/F: Abdominal pain Past Medical History Cardiac: CAD Pulmonary: No pertinent Hx Central Nervous System: No pertinent Hx GI: No pertinent Hx Hemotology/Oncology: No pertinent Hx Hepatobiliary: No pertinent Hx Psychiatric: No pertinent Hx Musculoskeletal: No pertinent Hx Infectious Disease: No peritnent Hx ENT: No pertinent Hx Endocrine: No pertinent Hx Dermatology: No pertinent Hx Family History: No pertinent Hx Patient Family History: Patient reports no known family medical history. Smoker: No Hx (Negative) Alocohol: None Drugs: None Domestic Violence: Neg Review of Systems Constitutional: No symptom reported Ears, Nose, & Throat: No symptom reported Eyes: No symptom reported Pulmonary/Respiratory: No symptom reported Cardiovascular: No symptom reported Gastrointestinal: No symptom reported Genitourinary: No symptom reported Musculoskeletal: No symptom reported Skin: No symptom reported Psychiatric: No symptom reported Endocrine: No symptom reported Hemotologic/Lymphatic: No symptom reported H&P Exam Vital Signs Vital Signs Date Time Temp Pulse Resp B/P (MAP) Pulse Ox O2 Delivery O2 Flow Rate FiO2 01/28/24 16:30 98.5 61 18 132/60 (84) 96 98.5 01/28/24 09:55 Nasal Cannula* 3 32 General Appeara: Well developed, Well nourished, Normal Appearance Head Exam: Normal inspection Neck Exam: Normal inspection, Non-tender, Normal alignment Eye Exam: bilateral eye Normal inspection, bilateral eye PERRL, bilateral eye EOMI Ear Exam: bilateral ear Auricle normal, bilateral ear Canal normal, bilateral ear TM normal Nasal Exam: Normal inspection Mouth: Normal Inspection Pulmonary/Respiratory: Normal inspection, Normal breath sounds, Chest non- tender, Lungs clear Cardiovascular/Chest: Normal inspection, Regular rate, Normal Rhythm Abdominal Exam: Normal bowel sounds, Soft, No tenderness, No hepatospenomegaly, No masses Rectal Exam: Normal inspection Back Exam: Normal inspection Pelvic Exam: External exam normal (atrophic vaginitis), Bimanual exam normal, Speculum exam normal (Mass too high in the pelvis to palpate) Shoulder Exam: Normal inspection, Non-tender, Normal ROM Elbow/Forearm Exam: Normal inspection, Non-tender, Normal ROM Wrist Exam: Normal inspection, Non-tender, Normal ROM Hand Exam: Normal inspection, Non-tender, Normal ROM Hip exam: Normal inspection, Non-tender, Normal range of motion Legs: bilateral leg non-tender, bilateral leg normal inspection, bilateral leg normal range of motion, bilateral leg no evidence of injury Knees: bilateral knee non-tender, bilateral knee normal inspection, bilateral knee normal range of motion, bilateral knee no evidence of injury Ankle Exam: bilateral ankle Normal inspection, bilateral ankle Non-tender, bilateral ankle Normal range of motion, bilateral ankle No evidence of injury Foot: bilateral foot non-tender, bilateral foot normal inspection, bilateral foot normal range of motion, bilateral foot no evidence of injury Tendon/ Neuro: Normal sensation, Normal motor function, Normal tendon functions RELATIONSHIP MANAGEMENT LEAD Exam: Normal hearing, Normal speech, PERRL Motor/Sensory: Normal sensory function, Normal motor function, Negative Babinski's sign Deep Tendon Ref: All intact Neuro/Mental St: Alert, Oriented Appearance: Appropriate appearance, Appropriate insight Eye contact/ Speech: Cooperative, Good eye contact, Normal speech Coordination/Gait: Normal finger->nose, Normal gait, Negative Romberg's sign Skin Exam: Normal inspection, Normal color, Warm/dry Lymphatic: Normal inspection Labs/Xrays Labs Test 01/28/24 18:13 01/28/24 04:47 01/27/24 15:40 01/27/24 13:57 Range/Units POC Glucose 162 H 70-106 mg/dl White Blood Count 8.3 4.4-10.8 10^3/uL Red Blood Count 3.70 L 4.0-5.20 10^6/uL Hemoglobin 11.7 L 12.2-16.2 g/dL Hematocrit 34.4 #L 36.0-46.0 % Mean Corpuscular Volume 92.9 80.0-100.0 fL Mean Corpuscular Hemoglobin 31.5 28.0-32.0 pg Mean Corpuscular Hemoglobin Concent 34.0 32.0-36.0 g/dL Red Cell Distribution Width 14.5 H 11.8-14.3 % Platelet Count 200 140-450 10^3/uL Mean Platelet Volume 9.6 6.9-10.8 fL Neutrophils (%) (Auto) 65.8 37.0-80.0 % Lymphocytes (%) (Auto) 22.1 10.0-50.0 % Monocytes (%) (Auto) 11.5 0.0-12.0 % Eosinophils (%) (Auto) 0.4 0.0-7.0 % Basophils (%) (Auto) 0.2 0.0-2.0 % Neutrophils # (Auto) 5.5 1.6-8.6 10 ^3/uL Lymphocytes # (Auto) 1.8 0.4-5.4 10 ^3/uL Monocytes # (Auto) 1.0 0-1.3 10 ^3/uL Eosinophils # (Auto) 0 0-0.8 10 ^3/uL Basophils # (Auto) 0 0-0.2 10 ^3/uL Nucleated Red Blood Cells 0.1 % Sodium Level 142 136-145 mmol/L Potassium Level 3.5 3.5-5.1 mmol/L Chloride Level 110 H 98-107 mmol/L Carbon Dioxide Level 22 20-31 mmol/L Anion Gap 10 5-15 Blood Urea Nitrogen 15 9-23 mg/dL Creatinine 0.92 0.550-1.02 mg/dL Glomerular Filtration Rate Calc 60 >90 mL/min BUN/Creatinine Ratio 16.3 10.0-20.0 Serum Glucose 98 74-106 mg/dL Calcium Level 8.8 8.7-10.4 mg/dL Urine Color Light-yellow Yellow Urine Clarity Turbid H Clear Urine pH 7.0 5.0-9.0 Urine Specific [place] 1.015 1.001-1.035 Urine Protein Negative Negative Urine Ketones Negative Negative Urine Blood 3+ H Negative /uL Urine Nitrite Negative Negative Urine Bilirubin Negative Negative Urine Urobilinogen Normal Negative mg/dL Urine Leukocyte Esterase Negative Negative /uL Urine RBC 549 0 - 4 /hpf Urine WBC 2 0 - 5 /hpf Urine Squamous Epithelial Cells Few <5 /hpf Urine Bacteria Few H None Seen /hpf Urine Mucus Few None Seen Urine Yeast (Budding) Occasional None Seen /hpf Urine Glucose 1+ H Normal mg/dL Total Bilirubin 0.5 0.2-1.0 mg/dL Aspartate Amino Transferase (AST) 16 13-40 U/L Alanine Aminotransferase (ALT) 12 7-40 U/L Alkaline Phosphatase 45 L 46-116 U/L Total Protein 7.1 5.7-8.2 g/dL Albumin 4.6 3.2-4.8 g/dL Lipase 65 H 12-53 U/L Assessment/Plan Admitting Diagnosis: Pelvic abdominal pain, pelvic abdominal mass Plan CA 125 CEA Plan discussed with: Patient (Follow up as out patient with Myself or contracted [employer] for halfway management of pelvic mass.... No acute abdomen / pelvis this admission.) WONG WHEELER DO Jan 28, 2024 19:03
[2024-01-28 20:00] VITALS: PULSE 65; RESP 16
[2024-01-28 22:00] VITALS: BP 113/53; PULSE 70; RESP 17; TEMP 98; O2SAT 92
[2024-01-29] VITALS (7 sets, daily range): BP systolic 108–152; BP diastolic 58–74; PULSE 64–79; RESP 16–20; TEMP 96.2–99.2; O2SAT 90–99
--- NOTE | 2024-01-29 08:06 | DVHPN2 ---
Progress Note - Dictate Date Seen: Jan 29, 2024 Medical Necessity Reason Pt with a Central, PICC or Fol: No vital signs Vital Sign Date Time Temp Pulse Resp B/P (MAP) Pulse Ox O2 Delivery O2 Flow Rate FiO2 01/29/24 05:00 98.0 64 18 108/66 (80) 94 98.0 01/28/24 20:00 Room Air* 0 21 Total Intake and Output 01/28/24 01/28/24 01/29/24 15:00 23:00 07:00 Intake Total 575 ml 300 ml 0 ml Balance 575 ml 300 ml 0 ml medications Current Medications Medications Dose Ordered Sig/Esequiel Route Start Time Stop Time Status Last Admin Dose Admin Ceftriaxone Sodium 50 ml @ 100 mls/hr DAILY IV 01/27/24 19:00 01/28/24 08:11 100 MLS/HR Sodium Chloride 1,000 ml @ 75 mls/hr [id number] IV 01/27/24 19:00 01/28/24 20:18 75 MLS/HR Diagnostic Test (Pha) 1 strip IQ4HR 01/27/24 20:00 01/29/24 05:23 1 STRIP Insulin Human Regular IQ4HR SC 01/27/24 20:00 01/28/24 20:08 3 UNITS Dextrose 50 ml UD PRN IV 01/27/24 19:00 Al Hydrox/Mg Hydrox/Simethicone 30 ml Q6HP PRN PO 01/27/24 19:00 Docusate Sodium 100 mg BIDPRN PRN PO 01/27/24 19:00 Acetaminophen 650 mg Q6HP PRN PO 01/27/24 19:00 Acetaminophen/ Hydrocodone Bitart 1 tab Q4HP PRN PO 01/27/24 19:00 01/28/24 03:11 1 TAB Ondansetron HCl 4 mg Q4HP PRN IV 01/27/24 19:00 01/28/24 08:11 4 MG Morphine Sulfate 2 mg Q4HPRN PRN IV 01/27/24 19:00 01/28/24 08:12 2 MG laboratory and microbiology Laboratory Tests 01/28/24 04:47 Test 01/28/24 04:47 Range/Units Serum Glucose 98 74-106 mg/dL Assessment/Plan cleared from urology standpoint outpt f/u signing off Problems(with codes): (1) Hydronephrosis (2) Renal calculus (3) Intractable abdominal pain Plan discussed with: Other Labs/Xrays [address] [address] Ph: [phone] DIAGNOSTIC IMAGING Diagnostic Imaging Report : [id number] Signed PATIENT: TARA JACKSON I ACCT: [id number] UNIT: [id number] : 1935 LOC: [facility] ROOM / BED: [facility] A AGE / SEX: 88 / F ADM STATUS: ADM IN SERVICE 21 ORDERING PHYSICIAN: ROBIN HU NP PROCEDURE(s): KIDUS - KIDNEY REASON: hydronephrosis, renal mass ORDER NUMBER(s): [id number], ACCESSION NUMBER(s): [id number] INDICATION: hydronephrosis, renal mass TECHNIQUE: Multiple real-time sonographic images of the kidneys and bladder were obtained. COMPARISON: None FINDINGS: RIGHT kidney measures 9.2 cm in length. Multiple right-sided parapelvic cysts with a 4.4 cm cortical cyst. No hydronephrosis. nonobstructing right renal lower pole calculus. LEFT kidney measures 11.1 cm in length. Mild left hydronephrosis. Normal left renal cortical thickness and echogenicity. No renal calculi. Urinary bladder is unremarkable. Urinary bladder prevoid volume of 715 cc with postvoid residual volume of 141 cc. Bilateral ureteral jets are visualized. Incidental finding of 6.9 x 6.1 x 8.7 cm right adnexal complex cyst IMPRESSION: Mild left hydronephrosis. Right renal parapelvic and cortical cysts with nonobstructing right renal lower pole calculus. 4.4 cm right renal lower pole exophytic indeterminate lesion on CT appears cystic on ultrasound. Urinary bladder is unremarkable with prevoid volume of 715 cc and postvoid residual volume of 141 cc. Correlate for possible urinary retention. Redemonstration of 6.9 x 6.1 x 8.7 cm right adnexal complex cyst. ATED BY: JANNA URIOSTEGUI DO DICTATED DATE/TIME: 01/28/241812 SIGNED BY: JANNA URIOSTEGUI DO SIGNED DATE/TIME: 01/28/241812 CC: Labs Test 01/29/24 05:05 01/28/24 19:58 01/28/24 04:47 01/27/24 15:40 Range/Units POC Glucose 98 70-106 mg/dl White Blood Count 8.3 4.4-10.8 10^3/uL Red Blood Count 3.70 L 4.0-5.20 10^6/uL Hemoglobin 11.7 L 12.2-16.2 g/dL Hematocrit 34.4 #L 36.0-46.0 % Mean Corpuscular Volume 92.9 80.0-100.0 fL Mean Corpuscular Hemoglobin 31.5 28.0-32.0 pg Mean Corpuscular Hemoglobin Concent 34.0 32.0-36.0 g/dL Red Cell Distribution Width 14.5 H 11.8-14.3 % Platelet Count 200 140-450 10^3/uL Mean Platelet Volume 9.6 6.9-10.8 fL Neutrophils (%) (Auto) 65.8 37.0-80.0 % Lymphocytes (%) (Auto) 22.1 10.0-50.0 % Monocytes (%) (Auto) 11.5 0.0-12.0 % Eosinophils (%) (Auto) 0.4 0.0-7.0 % Basophils (%) (Auto) 0.2 0.0-2.0 % Neutrophils # (Auto) 5.5 1.6-8.6 10 ^3/uL Lymphocytes # (Auto) 1.8 0.4-5.4 10 ^3/uL Monocytes # (Auto) 1.0 0-1.3 10 ^3/uL Eosinophils # (Auto) 0 0-0.8 10 ^3/uL Basophils # (Auto) 0 0-0.2 10 ^3/uL Nucleated Red Blood Cells 0.1 % Sodium Level 142 136-145 mmol/L Potassium Level 3.5 3.5-5.1 mmol/L Chloride Level 110 H 98-107 mmol/L Carbon Dioxide Level 22 20-31 mmol/L Anion Gap 10 5-15 Blood Urea Nitrogen 15 9-23 mg/dL Creatinine 0.92 0.550-1.02 mg/dL Glomerular Filtration Rate Calc 60 >90 mL/min BUN/Creatinine Ratio 16.3 10.0-20.0 Serum Glucose 98 74-106 mg/dL Calcium Level 8.8 8.7-10.4 mg/dL Urine Color Light-yellow Yellow Urine Clarity Turbid H Clear Urine pH 7.0 5.0-9.0 Urine Specific [place] 1.015 1.001-1.035 Urine Protein Negative Negative Urine Ketones Negative Negative Urine Blood 3+ H Negative /uL Urine Nitrite Negative Negative Urine Bilirubin Negative Negative Urine Urobilinogen Normal Negative mg/dL Urine Leukocyte Esterase Negative Negative /uL Urine RBC 549 0 - 4 /hpf Urine WBC 2 0 - 5 /hpf Urine Squamous Epithelial Cells Few <5 /hpf Urine Bacteria Few H None Seen /hpf Urine Mucus Few None Seen Urine Yeast (Budding) Occasional None Seen /hpf Urine Glucose 1+ H Normal mg/dL Test 01/27/24 13:57 Range/Units Total Bilirubin 0.5 0.2-1.0 mg/dL Aspartate Amino Transferase (AST) 16 13-40 U/L Alanine Aminotransferase (ALT) 12 7-40 U/L Alkaline Phosphatase 45 L 46-116 U/L Total Protein 7.1 5.7-8.2 g/dL Albumin 4.6 3.2-4.8 g/dL Lipase 65 H 12-53 U/L ROBIN HU NP Jan 29, 2024 08:06
[2024-01-29] MEDS: ACETAMINOPHEN 325 MG TAB PO PRN (08:36)
[2024-01-29] MEDS: DOCUSATE SOD 100 MG CAP PO PRN (08:36)
--- NOTE | 2024-01-29 14:30 | DVHDS2 ---
Discharge Summary Date of Admission Jan 27, 2024 at 18:49 Date of Discharge: Jan 29, 2024 Labs/Diagnostic Data: Laboratory Results Test 01/29/24 08:34 01/28/24 19:58 01/28/24 04:47 01/27/24 15:40 POC Glucose 103 mg/dl (70-106) Carcinoembryonic Antigen 3.67 ng/mL (<=5.0) White Blood Count 8.3 10^3/uL (4.4-10.8) Red Blood Count 3.70 10^6/uL (4.0-5.20) Hemoglobin 11.7 g/dL (12.2-16.2) Hematocrit 34.4 % (36.0-46.0) Mean Corpuscular Volume 92.9 fL (80.0-100.0) Mean Corpuscular Hemoglobin 31.5 pg (28.0-32.0) Mean Corpuscular Hemoglobin Concent 34.0 g/dL (32.0-36.0) Red Cell Distribution Width 14.5 % (11.8-14.3) Platelet Count 200 10^3/uL (140-450) Mean Platelet Volume 9.6 fL (6.9-10.8) Neutrophils (%) (Auto) 65.8 % (37.0-80.0) Lymphocytes (%) (Auto) 22.1 % (10.0-50.0) Monocytes (%) (Auto) 11.5 % (0.0-12.0) Eosinophils (%) (Auto) 0.4 % (0.0-7.0) Basophils (%) (Auto) 0.2 % (0.0-2.0) Neutrophils # (Auto) 5.5 10 ^3/uL (1.6-8.6) Lymphocytes # (Auto) 1.8 10 ^3/uL (0.4-5.4) Monocytes # (Auto) 1.0 10 ^3/uL (0-1.3) Eosinophils # (Auto) 0 10 ^3/uL (0-0.8) Basophils # (Auto) 0 10 ^3/uL (0-0.2) Nucleated Red Blood Cells 0.1 % Sodium Level 142 mmol/L (136-145) Potassium Level 3.5 mmol/L (3.5-5.1) Chloride Level 110 mmol/L (98-107) Carbon Dioxide Level 22 mmol/L (20-31) Anion Gap 10 (5-15) Blood Urea Nitrogen 15 mg/dL (9-23) Creatinine 0.92 mg/dL (0.550-1.02) Glomerular Filtration Rate Calc 60 mL/min (>90) BUN/Creatinine Ratio 16.3 (10.0-20.0) Serum Glucose 98 mg/dL (74-106) Calcium Level 8.8 mg/dL (8.7-10.4) Urine Color Light-yellow (Yellow) Urine Clarity Turbid (Clear) Urine pH 7.0 (5.0-9.0) Urine Specific [place] 1.015 (1.001-1.035) Urine Protein Negative (Negative) Urine Ketones Negative (Negative) Urine Blood 3+ /uL (Negative) Urine Nitrite Negative (Negative) Urine Bilirubin Negative (Negative) Urine Urobilinogen Normal mg/dL (Negative) Urine Leukocyte Esterase Negative /uL (Negative) Urine RBC 549 /hpf (0 - 4) Urine WBC 2 /hpf (0 - 5) Urine Squamous Epithelial Cells Few /hpf (<5) Urine Bacteria Few /hpf (None Seen) Urine Mucus Few (None Seen) Urine Yeast (Budding) Occasional /hpf (None Urine Glucose 1+ mg/dL (Normal) Test 01/27/24 13:57 Total Bilirubin 0.5 mg/dL (0.2-1.0) Aspartate Amino Transferase (AST) 16 U/L (13-40) Alanine Aminotransferase (ALT) 12 U/L (7-40) Alkaline Phosphatase 45 U/L (46-116) Total Protein 7.1 g/dL (5.7-8.2) Albumin 4.6 g/dL (3.2-4.8) Lipase 65 U/L (12-53) Other Laboratory Tests 01/28/24 04:47 Brief Hx & Hospital Course: Final diagnoses: Left distal ureteral stone 4 mm with hydronephrosis, resolved Right kidney cyst Right pelvic mass 8 x 9 cm rule out malignancy Old CVA Hypothyroidism Dyslipidemia She was admitted for left flank pain due to a and obstructing stone 4 mm on the left side, today the pain is resolved She had a pelvic mass on the right side raising possibility of ovarian malignancy, CA 125 is pending Overall she is asymptomatic today except for some mild pressure sensation in the right lower quadrant Vital signs are stable There is no need to keep her in the hospital any longer Anesthesia Associate has seen the patient and cleared her for outpatient follow up Urology has seen the patient and recommended no interventions The patient can be discharged home Follow up with roller repairer as an outpatient Condition at Discharge: Stable Final Diagnosis/Problems List Left distal ureteral stone 4 mm with hydronephrosis, resolved Right kidney cyst Right pelvic mass 8 x 9 cm Attention Old CVA Hypothyroidism Dyslipidemia Discharge Disposition: Home SNF Discharge Will this Physician continue t: No Discharge Instruct/Medications Diet: Cardiac 2g Na,low cholest Activity: No Restrictions, As Tolerated Follow Up/Referral: PCP YANI Medications: Same home meds Discharge Statement: "Patient was advised to return to the ER or call 911 if any headaches, dizziness, shortness of breath, chest pain, abdominal pain, bleeding, fevers, or worsening of medical condition. Patient was counseled about treatment plan, medications, possible side effects, patientverbalized understanding. All questions were answered to the best of my ability. This discharge took greater then 30 minutes in planning, reviewing documentation, counseling the patient, and discussing with other team members." ASSESSMENT ASSESSMENT Assessment Left distal ureteral stone 4 mm with hydronephrosis, resolved Right kidney cyst Right pelvic mass 8 x 9 cm Attention Old CVA Hypothyroidism Dyslipidemia Date of Service: Jan 29, 2024 Billing Provider: TRACE LOPEZ MD Common Visit Codes: NOT BILLABLE TRACE LOPEZ MD Jan 29, 2024 14:30
[2024-01-30 11:07] LABS: Cancer Antigen (CA) 125 12.8 U/mL (0.0-38.1)
== END 2024-01-29 17:52 | disposition home or self-care (01) | DRG 694 ==
LOC: ER 13:02 → OVERFLOW 18:49 → WEST WING 18:57 → OVERFLOW 18:57 → WEST WING 01-28 16:13
PROVIDERS: ADMIT Hospitalist; ATTEND Internal Medicine Geriatric Medicine
DX: N13.2 Hydronephrosis with renal and ureteral calculous obstruction (principal); R71.0 Precipitous drop in hematocrit; E03.9 Hypothyroidism, unspecified; N28.1 Cyst of kidney, acquired; I10 Essential (primary) hypertension; E11.9 Type 2 diabetes mellitus without complications; E78.5 Hyperlipidemia, unspecified; I25.10 Atherosclerotic heart disease of native coronary artery without angina pectoris; N28.89 Other specified disorders of kidney and ureter; Z86.73 Personal history of transient ischemic attack (TIA), and cerebral infarction without residual deficits; Z79.899 Other long term (current) drug therapy; Z79.4 Long term (current) use of insulin
CPT/HCPCS: 36415; 74176; 76775; 80048; 80053; 81001; 82378; 82962; 83690; 85025; 86304; G0378; J1815; J2405